=== PATIENT | female | born 1960 | race Caucasian/White ===

== ENCOUNTER 2016-08-14 05:22 | Day surgery (SDC) | payer MEDICARE, MEDICAID ==
[~2016-08-14] VITALS: Ht 160 cm; Wt 103.0 kg
[~2016-08-14 05:22] MED LIST: ALBU18HF2 IH; GLIP2.5T3 PO; LEDI1TAB PO; METF10002 PO; METF500T; OMEP40CA34 PO; PROP10TA10; PROP10TA10 PO
[2016-08-14 06:21] LABS: CLARITY URINE CLOUDY (CLEAR); COLOR URINE DARK YELLOW (YELLOW); GLUCOSE URINE NEGATIVE (NEGATIVE); KETONES URINE TRACE (NEGATIVE); LEUKOCYTE ESTERASE URINE TRACE (NEGATIVE); NITRITE URINE NEGATIVE (NEGATIVE); OCCULT BLOOD URINE 2+ (NEGATIVE); PROTEIN URINE TRACE (NEGATIVE); SPECIFIC GRAVITY URINE 1.027 (1.005-1.030)
[2016-08-14 06:25] LABS: BASOPHILS % 0.9 % (0.0-2.0); EOSINOPHILS % 2.5 % (0.0-5.0); HEMATOCRIT. 37.5 % (36.0-48.0); HEMOGLOBIN. 12.6 g/dL (12.0-16.0); LYMPHOCYTES % 23.6 % (20.0-50.0); MEAN CORPUSCULAR HEMOGLOBIN 27.2 pg (28.0-32.0); MEAN CORPUSCULAR VOLUME 80.7 fL (81.0-99.0); MEAN PLATELET VOLUME 9.2 fl (7.4-10.4); MONOCYTES % 6.7 % (2.0-8.0); NEUTROPHILS % 66.3 % (40.0-76.0); PLATELET 52 x1000/uL (130-400); RED BLOOD CELL COUNT 4.65 mill/uL (4.2-5.4); RED CELL DISTRIBUTION WIDTH 17.6 % (11.6-14.6)
[2016-08-14 06:29] LABS: CHLORIDE 110 mEq/L (98-107); INR 1.2; PARTIAL THROMBOPLASTIN TIME 36.5 sec (24.0-34.0); PROTHROMBIN TIME 12.7 sec
[2016-08-14 06:33] LABS: CARBON DIOXIDE 22 mEq/L (21-32)
[2016-08-14] MEDS ORDERED: SODIUM CHLORIDE 0.9% 1,000 ML IV SCH ×2 (08:00→10:15)
[2016-08-14] MEDS ORDERED: BUPIVACAINE/EPINEPH/PF 0.25%/0.0005 10ML ONE (08:49)
[2016-08-14] MEDS ORDERED: MIDAZOLAM HCL 2 MG/2 ML VIAL ONE (09:02)
[2016-08-14] MEDS ORDERED: FENTANYL CITRATE/PF 50MCG/ML 2ML VIAL ONE (09:02)
[2016-08-14] MEDS ORDERED: PROPOFOL 200MG/20ML VIAL IV ONE (09:03)
[2016-08-14] MEDS ORDERED: LIDOCAINE HCL 1% 20ML VIAL (Pyxis) INJ ONE (09:03)
[2016-08-14] MEDS ORDERED: CEFAZOLIN SODIUM 1000MG/VIAL ONE (09:14)
[2016-08-14] MEDS ORDERED: ONDANSETRON HCL 4MG/2ML VIAL ONE (09:18)
[2016-08-14] MEDS ORDERED: BACITRACIN ZINC 15GM TUBE TOP ONE (09:26)
[2016-08-14] MEDS ORDERED: HYDROMORPHONE HCL/PF 2MG/ML CPJ IV PRN (10:15)
[2016-08-14] MEDS ORDERED: ONDANSETRON HCL 4MG/2ML VIAL IV PRN (10:15)
[2016-08-14 10:30] VITALS: BP 117/64
[2016-08-14] MEDS ORDERED: HYDROCODONE/ACETAMINOPHEN 5/325MG TABLET PO NR (10:30)
== END 2016-08-14 11:28 | disposition home or self-care (01) ==
LOC: OR 05:22
PROVIDERS: ATTEND Surgery
DX: K64.8 Other hemorrhoids (principal); K64.4 Residual hemorrhoidal skin tags
CPT/HCPCS: 36415; 46260; 80048; 81001; 82962; 85025; 85610; 85730; 86850; 86900; 86901; 88304; J0171; J0690; J2250; J2405; J3010; J3490; J7030; J2704

== ENCOUNTER 2018-06-30 07:24 | Inpatient (IN) | payer MEDICARE, MEDICAID ==
[~2018-06-30] VITALS: Ht 157.5 cm; Wt 98.9 kg
[~2018-06-30 07:24] MED LIST changes: +METF-416 PO; -METF10002 PO; -PROP10TA10 PO
[2018-06-30 07:45] VITALS: BP 117/59
[2018-06-30 08:00] VITALS: BP 129/68
[2018-06-30] MEDS ORDERED: DEXTROSE 50% WATER 50ML SYRINGE IV PRN (08:30)
[2018-06-30] MEDS: BLOOD SUGAR DIAGNOSTIC STRIP TEST SCH ×2 (09:00→11:45)
[2018-06-30] MEDS: INSULIN LISPRO 100 UNITS/ML SUBCUT SCH ×2 (09:03→11:45)
[2018-06-30 09:41] LABS: CHLORIDE 111 mEq/L (98-107)
[2018-06-30 09:43] LABS: INR 1.3; PROTHROMBIN TIME 12.7 sec (9.6-11.0)
[2018-06-30 09:44] LABS: HEMATOCRIT. 33.3 % (36.0-48.0); HEMOGLOBIN. 10.5 g/dL (12.0-16.0); MEAN CORPUSCULAR HEMOGLOBIN 22.2 pg (28.0-32.0); MEAN CORPUSCULAR VOLUME 70.2 fL (81.0-99.0); RED BLOOD CELL COUNT 4.73 mill/uL (4.2-5.4); RED CELL DISTRIBUTION WIDTH 20.9 % (11.6-14.6)
[2018-06-30 10:25] LABS: PLATELET ESTIMATE MARKEDLY DECREASED
[2018-06-30 10:27] LABS: PLATELET 42 x1000/uL (130-400)
[2018-06-30 12:00] VITALS: BP 137/64
[2018-06-30 14:11] LABS: HEPATITIS B SURFACE ANTIGEN NEGATIVE
[2018-06-30 14:40] LABS: HEPATITIS A AB IGM NEGATIVE (NEGATIVE)
[2018-06-30 16:00] VITALS: BP 135/65
[2018-06-30] MEDS ORDERED: ONDANSETRON HCL 4MG/2ML INJ IV PRN (16:00)
[2018-06-30] MEDS ORDERED: ACETAMINOPHEN 325MG TABLET PO PRN ×2 (16:00)
[2018-06-30] MEDS ORDERED: HYDROCODONE/ACETAMINOPHEN 5/325MG TABLET PO PRN (16:00)
[2018-06-30 18:51] VITALS: BP 135/65
== END 2018-06-30 18:55 | disposition home or self-care (01) | DRG 809 ==
LOC: 6EST 07:24
PROVIDERS: ADMIT Internal Medicine; ATTEND Internal Medicine
PROC: 30233R1 Transfusion of Nonautologous Platelets into Peripheral Vein, Percutaneous Approach (ICD-10-PCS; principal; 2018-06-30)
DX: D61.818 Other pancytopenia (principal); E44.1 Mild protein-calorie malnutrition; E66.9 Obesity, unspecified; E11.9 Type 2 diabetes mellitus without complications; B19.20 Unspecified viral hepatitis C without hepatic coma; D17.22 Benign lipomatous neoplasm of skin and subcutaneous tissue of left arm; D17.21 Benign lipomatous neoplasm of skin and subcutaneous tissue of right arm; D17.79 Benign lipomatous neoplasm of other sites; E87.8 Other disorders of electrolyte and fluid balance, not elsewhere classified; K74.60 Unspecified cirrhosis of liver; Z90.710 Acquired absence of both cervix and uterus; Z68.39 Body mass index [BMI] 39.0-39.9, adult; Z71.3 Dietary counseling and surveillance
CPT/HCPCS: 36415; 80048; 80076; 82962; 86705; 86709; 86803; 86850; 86900; 87340; 93005; J7040; P9034

== ENCOUNTER 2019-07-20 16:31 | Emergency (ER) | payer MEDICARE, MEDICAID ==
[~2019-07-20] VITALS: Ht 160 cm; Wt 98.0 kg
[~2019-07-20 16:31] MED LIST changes: -ALBU18HF2 IH; -GLIP2.5T3 PO; -LEDI1TAB PO; -METF500T; +OMEP40CA12 PO; -OMEP40CA34 PO
[2019-07-20 18:20] LABS: HEMATOCRIT. 28.4 % (36.0-48.0); HEMOGLOBIN. 8.9 g/dL (12.0-16.0); MEAN CORPUSCULAR VOLUME 64.2 fL (81.0-99.0); RED BLOOD CELL COUNT 4.43 mill/uL (4.2-5.4); RED CELL DISTRIBUTION WIDTH 20.6 % (11.6-14.6)
[2019-07-20 18:23] LABS: PLATELET 41 x1000/uL (130-400)
[2019-07-20 18:26] LABS: CHLORIDE 112 mEq/L (98-107)
[2019-07-20 18:28] LABS: INR 1.2; PROTHROMBIN TIME 12.5 sec (9.6-11.0)
[2019-07-20 18:53] LABS: CLARITY URINE CLEAR (CLEAR); COLOR URINE YELLOW (YELLOW); KETONES URINE NEGATIVE (NEGATIVE); LEUKOCYTE ESTERASE URINE TRACE (NEGATIVE); NITRITE URINE NEGATIVE (NEGATIVE); OCCULT BLOOD URINE TRACE (NEGATIVE); PROTEIN URINE NEGATIVE (NEGATIVE); SPECIFIC GRAVITY URINE 1.025 (1.005-1.030)
[2019-07-20 19:06] VITALS: BP 130/70
[2019-07-20 19:20] LABS: PLATELET ESTIMATE MARKEDLY DECREASED
== END 2019-07-20 19:10 | disposition home or self-care (01) ==
LOC: ER 16:31 → CANBEDREQ 21:25
DX: D61.818 Other pancytopenia (principal); R03.0 Elevated blood-pressure reading, without diagnosis of hypertension; B19.20 Unspecified viral hepatitis C without hepatic coma; F11.10 Opioid abuse, uncomplicated; E11.9 Type 2 diabetes mellitus without complications; Z87.09 Personal history of other diseases of the respiratory system
CPT/HCPCS: 36415; 71045; 80053; 81003; 85025; 86850; 86900; 93005; 99285

== ENCOUNTER 2022-10-20 17:36 | Emergency (ER) | payer MEDICARE, MEDICAID ==
[~2022-10-20] VITALS: Ht 160 cm; Wt 68.5 kg
[~2022-10-20 17:36] MED LIST changes: -OMEP40CA12 PO; +OMEP40CA20 PO
[2022-10-20 17:52] VITALS: BP 121/59; O2SAT 98
[2022-10-20] MEDS ORDERED: AMOX1TAB16 MT (19:12)
[2022-10-20 19:48] VITALS: PULSE 73; RESP 16; TEMP 98.3
== END 2022-10-20 19:50 | disposition home or self-care (01) ==
LOC: ER 17:36
DX: S70.11XA Contusion of right thigh, initial encounter (principal); S70.311A Abrasion, right thigh, initial encounter; E11.9 Type 2 diabetes mellitus without complications; Z98.890 Other specified postprocedural states; W54.0XXA Bitten by dog, initial encounter; Y93.89 Activity, other specified; Y92.89 Other specified places as the place of occurrence of the external cause; Y99.8 Other external cause status
CPT/HCPCS: 99283